=== PATIENT | male | born 1965 | race Caucasian/White ===

== ENCOUNTER 2024-11-24 18:15 | Outpatient (CLI) | payer BC, SELFPAY ==
[2024-11-24 18:50] LABS: Basophils # 0.1 K/mm3 (0-0.2); Basophils % 0.8 % (0.1-2.0); Eosinophils # 0.3 Kmm3 (0.0-0.4); Eosinophils % 3.5 % (0.1-12.0); Hematocrit 50.7 % (42.0-52.0); Hemoglobin 17.6 g/dL (14.1-18.0); Immature Granulocytes # 0.02 10^3uL; Immature Granulocytes % 0.3 %; Lymphocytes # 3.2 K/mm3 (0.7-4.5); Lymphocytes % 44.5 % (10-50); Mean Corpuscular HGB Conc 34.7 g/dL (31.8-35.4); Mean Corpuscular Volume 95.1 fl (80-94); Mean Platelet Volume 10.6 fl (7.4-10.4); Monocytes # 0.5 K/mm3 (0.1-1.0); Neutrophils # 3.2 K/mm3 (1.8-7.8); Neutrophils % 43.9 % (37.0-80.0); Nucleated Red Blood Cells # 0 10^3/uL; Nucleated Red Blood Cells % 0 %; Platelet Count 219 K/mm3 (142-424); Red Blood Count 5.33 M/mm3 (4.60-6.20); Red Cell Distribution Width 11.9 % (11.5-17.5); Red Cell Distribution Width-SD 41.2 fL; White Blood Count 7.2 K/mm3 (4.8-10.8)
[2024-11-24 19:03] LABS: Alanine Aminotransferase 47 U/L (12-78); Albumin Level 4.4 g/dl (3.5-5.0); Albumin/Globulin Ratio 1.6 (1.1-1.8); Alkaline Phosphatase 57 U/L (38-126); Anion Gap 11.1 mEq/L (5-15); Aspartate Amino Transferase 35 U/L (17-59); Bilirubin,Total 0.7 mg/dl (0.2-1.3); Blood Urea Nitrogen 14 mg/dl (9-20); Calcium 9.1 mg/dl (8.4-10.2); Carbon Dioxide 26 mmol/L (22.0-30.0); Chloride 105 mmol/L (98-107); Chol/HDL Ratio 7.8 (1-3.5); Cholesterol 164 mg/dl (140-200); Estimated Glomerular Filt Rate 99 ml/min (>60); GFR (African American) 120 ML/MIN (>60); Globulin 2.8 g/dL (1.3-3.2); Glucose 103 mg/dl (74-100); HDL Cholesterol 21 mg/dl (40-60); Potassium 4.1 mmoL/L (3.5-5.1); Sodium 138 mmol/L (136-145); Total Protein,Serum 7.2 g/dl (6.3-8.2)
[2024-11-24 19:04] LABS: Triglycerides 445 mg/dl (30-150)
[2024-11-24 19:15] LABS: Direct LDL Cholesterol 74.97 mg/dL (100-129)
[2024-11-24 19:35] LABS: Thyroid Stimulating Hormone 3.68 uIU/mL (0.465-4.68)
[2024-12-01 05:09] LABS: Free Testosterone (Direct) 5.6 pg/mL (7.2-24.0); Testosterone, Total, LC/MS 254.5 ng/dL (264.0-916.0)
== END 2024-11-24 23:59 | disposition home or self-care (01) ==
PROVIDERS: PCP Family Medicine; Visit Provider Family Medicine
DX: R03.0 Elevated blood-pressure reading, without diagnosis of hypertension (principal); J30.9 Allergic rhinitis, unspecified; R53.83 Other fatigue; R37 Sexual dysfunction, unspecified
CPT/HCPCS: 80053; 80061; 84402; 84403; 84443; 85025

== ENCOUNTER 2024-12-19 12:41 | Outpatient (CLI) | payer BC, SELFPAY ==
[2024-12-19 18:28] LABS: Hematocrit 47.4 % (42.0-52.0); Hemoglobin 16.6 g/dL (14.1-18.0); Immature Granulocytes % 0.2 %; Mean Corpuscular HGB Conc 35.0 g/dL (31.8-35.4); Mean Corpuscular Hemoglobin 33.4 pg (27.0-31.2); Mean Corpuscular Volume 95.4 fl (80-94); Nucleated Red Blood Cells % 0 %; Platelet Count 198 K/mm3 (142-424); Red Blood Count 4.97 M/mm3 (4.60-6.20); Red Cell Distribution Width-SD 42.3 fL; White Blood Count 6.1 K/mm3 (4.8-10.8)
--- OUTSIDE RECORDS SUMMARY | 2024-12-21 12:43 | XMS_ITS | Patient Health Record ---
Author Organization [facility] Ailyn huerta, Derrick Address [address] [place] [address] Care Team Providers Care Granular Operator Name Role Phone EDITA Martinez JR Primary Care Provider Reason For Referral No Information Medications Medication SIG (Take, Route, Frequency, Duration) Notes Start Date End Date Status Ranitidine HCl 150 MG Oral take 1 tablet (150 mg) by oral route 2 times per day PRN 07/25/2014 Active Problems Problem Type SNOMED Code ICD Code Onset Dates Problem Status W/U Status Risk Notes Problem Disorder of function of stomach (141135538) Dyspepsia and other specified disorders of function of stomach (536.8) 07/25/2014 Active confirmed Problem Diarrhea (19861202) Diarrhea (787.91) 07/25/2014 Active confirmed Plan Of Treatment No Information Insurance Providers Payer Name Payer Address Payer Phone Subscriber Number Group Number Insured Name Patient Relationship to Insured Coverage Start Date Coverage End Date [facility] [address] [address] [place] [phone] [id number] MADISON HENSON Self - patient is the insured
[2024-12-26 13:39] LABS: Free Testosterone (Direct) 5.9 pg/mL (7.2-24.0); Testosterone, Total, LC/MS 282.4 ng/dL (264.0-916.0)
== END 2024-12-19 23:59 | disposition home or self-care (01) ==
LOC: LAB.DROPOF 12-21 12:41
PROVIDERS: PCP Family Medicine; Visit Provider Family Medicine
DX: R79.89 Other specified abnormal findings of blood chemistry (principal); R53.83 Other fatigue; Z12.5 Encounter for screening for malignant neoplasm of prostate
CPT/HCPCS: 84402; 84403; 85025; G0103